=== PATIENT | female | born 1955 | race Caucasian/White ===

== ENCOUNTER 2021-04-04 14:33 | Outpatient (CLI) | payer OTHER, SELFPAY ==
--- NOTE | 2021-04-04 14:35 | MM_ITS ---
WS: [id number] SCREENING DIGITAL MAMMOGRAM WITH CAD HISTORY: SCREENING COMPARISON: 10/14/2017 and 04/05/2014 Bilateral CC and MLO views submitted. Computer aided detection analyzed. Breast composition: There are scattered areas of fibroglandular density. Asymmetry is new in the RIGH T upper outer quadrant seen best on the CC projection. Benign calcification in the central LEFT breas t. MM/[place] [id number] IMPRESSION: BI-RADS: 0-Incomplete: Need additional imaging evaluation FOLLOW UP: Need Additional Imaging RIGHT breast: Spot compression views (CC and MLO). True ML. Ultrasound to follo w if abnormality persists.
== END 2021-04-04 14:34 | disposition home or self-care (01) ==
LOC: RADSHAW 14:34
PROVIDERS: PCP Nurse Practitioner Family; Visit Provider Nurse Practitioner Family
DX: Z12.31 Encounter for screening mammogram for malignant neoplasm of breast (principal)
CPT/HCPCS: 77067

== ENCOUNTER 2021-10-15 15:17 | Outpatient (CLI) | payer OTHER, SELFPAY ==
--- NOTE | 2021-10-15 15:52 | XR_ITS ---
WS: [id number] Exam: XR tibia fibula RT 2V [id number] Date/Time of Exam: 10/15/2021 4:03 PM Reason For Exam: LEG PAIN, RIGHT In multiple views, no fractures, soft tissue swelling, or unusual calcifications are noted in or arou nd the tibia and fibula. There is normal bony alignment. No irregularity to the bony architecture i s noted. XR/XR tibia fibula RT 2V [id number] IMPRESSION: Negative right tibia and fibula.
== END 2021-10-15 15:18 | disposition home or self-care (01) ==
PROVIDERS: PCP Nurse Practitioner Family; Visit Provider Nurse Practitioner Family
DX: M79.604 Pain in right leg (principal)
CPT/HCPCS: 73590

== ENCOUNTER → 2022-06-13 11:32 | Outpatient (BNVA) | payer OTHER, SELFPAY | PROVIDERS: PCP Nurse Practitioner Family; Visit Provider Podiatrist Foot & Ankle Surgery | DX: M89.8X7 Other specified disorders of bone, ankle and foot (principal); M19.071 Primary osteoarthritis, right ankle and foot; R60.0 Localized edema | CPT/HCPCS: 73630 ==

== ENCOUNTER 2022-07-03 15:43 | Outpatient (CLI) | payer OTHER, SELFPAY ==
--- NOTE | 2022-07-03 15:58 | MM_ITS ---
WS: [id number] LEFT 3D TOMOSYNTHESIS DIGITAL MAMMOGRAPHY WITH CAD CLINICAL INFORMATION: ABNORMAL MAMMO HISTORY: New LEFT breast lumps COMPARISON: Outside examination April 14, 2022 TECHNIQUE: 3 views of the left breast were obtained with spot compression views of the areas of inter est FINDINGS: Scattered fibroglandular densities of the left breast. Breast parenchyma is unchanged in appearance s falguni April 14, 2022. A few incidental punctate calcifications. Palpable marker near the areola wit h underlying surgical clips. These are unchanged in appearance since April 14, 2022. The most supe rficial surgical clip is just beneath the skin in the area of palpable abnormality. No suspicious parenchymal abnormalities in the additional area of palpable concern near the 4 to 5:00 position 4 cm mandible. Ultrasound described below ULTRASOUND BREAST LEFT TECHNIQUE: Ultrasound left breast focused areas of concern. CLINICAL INFORMATION: ABNORMAL MAMMO. FINDINGS: Ultrasound LEFT breast at the 6 clock position 1 cm from the nipple in the area of concern. Associate d underlying surgical clips as seen on the mammogram. The most superficial surgical clip corresponds to the area of palpable concern approximately 1.7 mm deep to the skin. Associated shadowing from surg ical clips. No suspicious lesions in this area. Ultrasound 4:00-5:00 4 cm from the nipple demonstrates normal underlying parenchymal tissue. No cysti c or solid lesions. No suspicious lesions to target for biopsy. MM/[place] [id number] IMPRESSION: Consider breast surgery consultation for the palpable area near the areola whic h appears to correspond to surgical clips BI-RADS: 2-Benign FOLLOW UP: 1 Year Follow-up OTHERWISE RECOMMEND RETURN TO ANNUAL DIAGNOSTIC MAMMOGRAPHY.
== END 2022-07-03 15:44 | disposition home or self-care (01) ==
PROVIDERS: PCP Registered Nurse; Visit Provider Internal Medicine
DX: N63.20 Unspecified lump in the left breast, unspecified quadrant (principal)
CPT/HCPCS: 76642; 77061; G0279

== ENCOUNTER 2023-07-09 12:47 | Outpatient (CLI) | payer OTHER, SELFPAY ==
--- NOTE | 2023-07-09 12:59 | MM_ITS ---
WS: [id number] LEFT 3D TOMOSYNTHESIS DIGITAL MAMMOGRAPHY WITH CAD CLINICAL INFORMATION: HX OF BREAST CANCER HISTORY: RIGHT mastectomy with reconstruction. History of LEFT breast reduction COMPARISON: 07/03/2022, 04/14/2022, and 04/04/2021. Ultrasound 07/03/2022 TECHNIQUE: 3 views of the left breast were obtained. FINDINGS: Scattered fibroglandular densities of the left breast. Previously described surgical clips near the a reola just beneath the skin unchanged in appearance. A few tiny incidental punctate calcifications. No suspicious focal mass, asymmetry, calcifications, or architectural distortion. No evidence of rigo gnancy. IMPRESSION: MM/[place] [id number] BI-RADS: 2-Benign FOLLOW UP: 1 Year Follow-up Recommend return to annual diagnostic mammography.
== END 2023-07-09 12:48 | disposition home or self-care (01) ==
LOC: RAD 12:47
PROVIDERS: PCP Registered Nurse; Visit Provider Internal Medicine
DX: Z85.3 Personal history of malignant neoplasm of breast (principal); Z90.11 Acquired absence of right breast and nipple; R92.322 Mammographic fibroglandular density, left breast; Z98.890 Other specified postprocedural states
CPT/HCPCS: 77061; G0279